=== PATIENT | female | born 1960 | race Caucasian/White ===

== ENCOUNTER 2017-11-18 08:48 | Day surgery (SDC) | payer OTHER, SELFPAY ==
[2017-11-17 10:10] VITALS: BMI 34.7
--- NOTE | 2017-11-18 10:13 | SUR.PREOP ---
patient with bg of [phone], [phone] Angulo, surgery to canceled until blood sugar controlled. Patient had time with provider at bedside to ask questions. Verbally agrees to plan. DCed ambulatory from department with close friend.
== END 2017-11-18 09:45 ==
LOC: OR 08:49
PROVIDERS: Visit Provider Surgery
PROC: (CPT 36590; 2017-11-18 10:15)

== ENCOUNTER → 2018-03-23 10:53 | Outpatient (CLI) | payer OTHER, SELFPAY ==
[2018-03-23 10:58] LABS: RBC Urine None Seen (0-5/HPF)
[2018-03-23 11:51] LABS: Appearance Urine UA CLEAR; Bilirubin Urine UA NEGATIVE (NEGATIVE); Color Urine UA YELLOW; Glucose Urine UA NEGATIVE (Normal); Ketones Urine UA NEGATIVE (NEGATIVE); Leukocyte Esterase Urine UA TRACE (NEGATIVE); Nitrite Urine UA NEGATIVE (Negative); Occult Blood Urine UA NEGATIVE (Negative); Protein Urine UA NEGATIVE (Negative); Specific Gravity Urine UA 1.015 (1.000-1.035); Urobilinogen Urine UA 0.2 E.U./dL (0.2); pH Urine UA 6.5 (4.5-8.0)
[2018-03-23 12:00] LABS: Hemoglobin A1C% w Est Avg Glu 6.5 % (4.0-6.0)
[2018-03-23 12:02] LABS: Bacteria Urine Few (2-10); Squamous Epithelial Cell Urine 1-5 /HPF; WBC Urine 0-1/HPF (0-5/HPF)
[2018-03-23 12:03] LABS: Culture Indicated Urine Specimen Cultured
[2018-03-23 12:53] LABS: Cancer Antigen 125 458 U/mL (0-35)
[2018-03-25 19:23] LABS: Human HE4 Antigen 452 pmol/L
== END ==
PROVIDERS: Visit Provider Surgery
DX: R10.9 Unspecified abdominal pain (principal); C56.9 Malignant neoplasm of unspecified ovary; E11.9 Type 2 diabetes mellitus without complications
CPT/HCPCS: 36415; 81001; 83036; 86304; 86305; 87077; 87086; 87147; 99213

== ENCOUNTER → 2019-06-19 14:36 | Outpatient (CLI) | payer OTHER, SELFPAY | PROVIDERS: PCP Family Medicine; Visit Provider Physician Assistant | DX: N39.0 Urinary tract infection, site not specified (principal) | CPT/HCPCS: 87077; 87086; 87147 ==